=== PATIENT | female | born 1970 | race Caucasian/White ===

== ENCOUNTER 2016-09-07 18:00 | Inpatient (IN) | payer OTHER ==
--- NOTE | ~2016-09-07 | PN ---
Unit #: [id number] #: [id number] Patient: TIFFANIE VALVERDE [id number] [place] [address] [id number] MR#: [id number] NAME: TIFFANIE VALVERDE ROOM: [facility] Age: 46 Sex: F Admission Date: 09/07/2016 : 1970 Attending Physician: Rasta Wills M.D. Admitting Physician: Rasta Wills M.D. Primary Care Physician: Generic Doctor Not In System [facility] PROGRESS NOTES DATE September 09, [address] Rasta Wills at [facility] DISCUSSION This patient was seen and assessed on September 09, 2016. At this time, she reports that she is tired, she states that she only got one hour of sleep last night, and her mood appears labile as evidence by frequent changes from tearfulness back to a flat affect and then tearfulness again. At this time she reports positive visual hallucinations and states that she sees monsters and aliens, and "shit coming to get her." She reports increased thoughts of paranoia stating that she feels like people are out to get her at this time. She still reports positive suicidal ideation with no specific plan. We will continue to monitor her via the continuous video monitoring while she is in her room and every fifteen minute checks for safety. Dictated by... HILDA Bower TD: 09/12/2016 07:47 JOB #: [id number] [facility] NOTES Page 1 of 1 X TYRELL ROACH PROGRESS NOTE
--- NOTE | ~2016-09-07 | HP ---
Unit #: [id number] #: [id number] Patient: TIFFANIE VALVERDE [id number] [place] [address] [id number] MR#: [id number] NAME: TIFFANIE VALVERDE ROOM: P258 Age: 46 Sex: F Admission Date: 09/07/2016 : 1970 Attending Physician: Rasta Wills M.D. Admitting Physician: Rasta Wills M.D. Primary Care Physician: Generic Doctor Not In System HISTORY AND PHYSICAL HISTORY OF PRESENT ILLNESS The patient is a 46-year-old female who states she is here due to suicidal ideation and homicidal ideation and cutting her wrist. PAST MEDICAL HISTORY Significant for hypertension, neuropathy, back pain, chest pain, and degenerative disk disease. PAST SURGICAL HISTORY Significant for back surgery, hysterectomy, gallbladder removal, and tonsillectomy. SOCIAL HISTORY Negative. ALLERGIES The patient states to Cymbalta and Lyrica. FAMILY HISTORY Noncontributory. REVIEW OF SYSTEMS CONSTITUTIONAL: No fever or chills. HEENT: Denies any sore throat, ear pain or runny nose. CARDIOVASCULAR: Denies chest pain, irregular heart rhythm or palpitations. CHEST: Denies shortness of breath or cough. No hemoptysis. GASTROINTESTINAL: Denies nausea, vomiting, diarrhea or chronic constipation. ENDOCRINE: Denies history of increased thirst or urination. No recent significant weight loss or gain. GENITOURINARY: Denies dysuria, frequency, or hematuria. SKIN: Denies any rashes. HEMATOLOGIC: Denies history of increased bleeding or bruising. MUSCULOSKELETAL: Denies any hot, swollen joints. No generalized muscle pain. NEUROLOGIC: Denies problems with vision or speech. No frequent, severe headaches. No numbness, tingling or weakness in any extremities. Denies loss of bladder or bowel control. CURRENT MEDICATIONS 1. Tramadol 50 mg p.o. twice daily p.r.n. 2. Hydroxyzine 50 mg p.o. 3 times daily p.r.n. 3. Remeron 7.5 mg p.o. q.h.s. Unit #: [id number] #: [id number] Patient: TIFFANIE VALVERDE 4. Topiramate 100 mg p.o. twice daily. 5. Omeprazole 20 mg p.o. twice daily. 6. Neurontin 400 mg p.o. 3 times daily. 7. Trifluoperazine 2 mg p.o. twice daily. 8. Clonazepam 0.5 mg p.o. twice daily. 9. Sertraline 150 mg p.o. daily. 10. Keppra 500 mg p.o. twice daily. 11. Inderal 10 mg p.o. twice daily. PHYSICAL EXAMINATION GENERAL: Alert, oriented, no acute distress. VITAL SIGNS: Temperature 98.7, blood pressure 142/93, heart rate 81, respirations 18. HEIGHT: 5 feet 5-1/2 inches. WEIGHT: 284 pounds. SKIN: Warm, dry. No rashes or lesions, track louis, cuts, etc. Tattoo to the right subscapular area of the right breast, bilateral upper chest. Multiple cuts to right and left forearm with incision to the midline abdomen. Cuts to the right lower extremity. Bruise to the right hand. Piercings bilateral ears. HEENT: Normocephalic. TMs not viewed. Oronasal passages clear. Conjunctivae clear. PERRLA. EOM is intact. NECK: No lymphadenopathy or thyromegaly. HEART: Regular rate and rhythm. No murmur, gallop, or rub. LUNGS: Clear to auscultation bilaterally. ABDOMEN: Soft, nontender without palpable masses or hepatosplenomegaly. : Not assessed. EXTREMITIES: No evidence of cyanosis, clubbing, or edema. Moves all extremities independently without obvious deficit. NEUROLOGICAL: Grossly within normal limits. Cranial Nerves: II: Visual wallace are intact. III, IV AND : Extraocular movements are intact. Pupils are equal, round and reactive to light. V: Facial sensation is grossly normal. VII: Facial movements and expression are normal. VIII: Auditory acuity grossly intact. IX, X: Uvula is midline. Phonation is normal. XI: Patient shrugs shoulders and turns head normally. XII: Tongue protrudes in the midline. Sensory and Motor Function: Sensory and motor sensation is grossly normal. Motor: moves all extremities well. Coordination: Gait is normal. Deep Tendon Reflexes: Intact. IMPRESSION Psychiatric admission. RECOMMENDATIONS PSYCHIATRIC: Per psychiatrist. MEDICAL: No contraindication to participating in facility's activities. MEDICAL PROGNOSIS Good. Dictated by... Chi Ricardo.R.N. CGJ/bzg Unit #: [id number] #: [id number] Patient: TIFFANIE VALVERDE TD: 09/08/2016 15:03 JOB #: [id number] HISTORY AND PHYSICAL Page 1 of 1 X Faviola Bruno APR X HISTORY AND PHYSICAL
--- NOTE | ~2016-09-07 | CO ---
Unit #: [id number] #: [id number] Patient: TIFFANIE VALVERDE [id number] [facility] [address] [place] [address] [id number] I MR#: [id number] NAME: TIFFANIE VALVERDE ROOM: [facility] Age: 46 Sex: F Admission Date: 09/07/2016 : 1970 Attending Physician: Rasta Wills M.D. Primary Care Physician: Generic Doctor Not In System Requesting Physician: Rasta Wills M.D. CONSULTATION REPORT REASON FOR CONSULTATION Patient complaint of a bruise to her right fourth metacarpal phalangeal joint. SUBJECTIVE "The day before I came in I hit a shower door. Not hard enough for it to break but I just hit it. I do not think I broke anything but I have a bruise." OBJECTIVE Vital signs within normal limits. Noted dime size bruise to right fourth proximal metacarpal phalangeal joint. No swelling. The patient has good range of motion in all directions. Good movement. Good color circulation pulses. ASSESSMENT Bruise to right fourth metacarpal phalangeal joint. PLAN Observation. Dictated by... Kathy Ricardo/renu TD: 09/10/2016 00:20 JOB #: [id number] CONSULTATION REPORT Page 1 of 1 X Faviola Bruno APR X CONSULTATION REPORT
--- NOTE | ~2016-09-07 | CO ---
Unit #: [id number] #: [id number] Patient: TIFFANIE VALVERDE [id number] [place] [address] [id number] MR#: [id number] NAME: TIFFANIE VALVERDE ROOM: [facility] Age: 46 Sex: F Admission Date: 09/07/2016 : 1970 Attending Physician: Rasta Wills M.D. Primary Care Physician: Generic Doctor Not In System Consultation Date: 09/13/2016 CONSULTATION REPORT SEAN Johns is a 46-year-old originally admitted with depression and verbalizing wanting to hurt herself. She has multiple complaints on a daily basis. At some point, she complained to nursing staff that her legs were weak and painful. She has been noted to ambulate in the hallway and make her way down to her meals without any complaints or evidence of disability. We have been asked to assess and give recommendations. OBJECTIVE GENERAL: Alert, morbidly obese, no apparent distress. VITAL SIGNS: Blood pressure 113/70, heart rate 80, respirations 16, temperature 98.6, weight 284 and height 5 feet 5 inches. EXTREMITIES: No evidence of cyanosis, clubbing, or edema. SKIN: Warm and dry without rash or lesion. She is able to get out of her bed, walked down the nguyen without difficulty. ASSESSMENT The patient complains of weakness and pain in her legs. I would attribute this most likely to her morbid obesity. She seems to have no problem with ambulation however. PLAN She is encouraged to lose weight. She has Tylenol p.r.n. Dictated by... Donavan VargheseAImer-Joshua. for Hernan Maria/ty TD: 09/19/2016 01:20 JOB #: [id number] Unit #: [id number] #: [id number] Patient: TIFFANIE VALVERDE CONSULTATION REPORT Page 1 of 1 X Janki Hwang CONSULTATION REPORT
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
--- NOTE | ~2016-09-07 | DS ---
Unit #: [id number] #: [id number] Patient: TIFFANIE VALVERDE [id number] [facility] [address] [place] [address] [id number] MR#: [id number] NAME: TIFFANIE VALVERDE ROOM: [facility] Age: 46 Sex: F Admission Date: 09/07/2016 : 1970 Discharge Date: 09/15/2016 Attending Physician: Rasta Wills M.D. Primary Care Physician: Generic Doctor Not In System DISCHARGE SUMMARY REASON FOR ADMISSION Ms. Valverde is a 46-year-old woman, who has been suicidal and suffering from hallucinations. She had not slept in several days and had multiple suicide plans. She had recently been released for another facility in [place], [place], where she was there approximately 2 weeks. [facility]. DIAGNOSTIC STUDIES LABORATORY RESULTS: Please see hospital chart. HOSPITAL COURSE The patient was readmitted and placed on suicide precautions. She was also placed on video monitoring due to her record of self-harm. The patient was quite isolated and passive during the hospitalization, complaining greatly of back pain and leg weakness, although there was no clinical evidence of this as she was able to ambulate around the unit quite well and request assistance from the nursing staff. Trilafon was increased to address her complaints of mood lability and psychosis and she was seen by our emergency medical technician with no new recommendations made regarding her medical treatment. She eventually began to feel "better" and participated briefly in psychotherapy groups and activities, although still in a somewhat superficial level. On the date of discharge, she was able to contract for safety and was scheduled to follow up with [facility] in [place], [place]. DISCHARGE DIAGNOSES AXIS I: Bipolar disorder, depressed. AXIS II: Borderline personality traits noted. AXIS III: Obesity, degenerative disk disease, hypertension, neuropathy, back pain. AXIS IV: AXIS V: DISCHARGE INSTRUCTIONS Follow up with [facility] in [place], [place]. DISCHARGE MEDICATIONS Trazodone 100 mg at bedtime for insomnia, Stelazine 5 mg b.i.d. for psychotic features, lithium 300 mg b.i.d. for mood stability. Other medications continued unchanged were clonazepam 0.5 mg b.i.d. for anxiety, Keppra 500 mg b.i.d. for seizures, Inderal 10 mg b.i.d. for hypertension, Unit #: [id number] #: [id number] Patient: TIFFANIE VALVERDE melatonin 5 mg at bedtime as needed for insomnia, Neurontin 400 mg t.i.d. for pain, Protonix 40 mg daily for GERD, Topamax 100 mg b.i.d. for mood stability, Ultram 50 mg b.i.d. for pain. CONDITION AT DISCHARGE Fair. PROGNOSIS Fair. DIET AND ACTIVITY Per primary care doctor. Dictated by... Rasta Wills M.D. Dennise/ty TD: 09/22/2016 03:16 JOB #: [id number] DISCHARGE SUMMARY Page 1 of 1 X Rasta Wills MD X DISCHARGE SUMMARY
[2016-09-08 11:14] LABS: URINE APPEARANCE CLEAR; URINE BILIRUBIN NEG (NEG); URINE BLOOD TRACE (NEG); URINE COLOR YELLOW; URINE GLUCOSE NEG (NEG); URINE KETONE NEG (NEG); URINE LEUKOCYTE ESTERASE 1+ (NEG); URINE NITRATE NEG (NEG); URINE PROTEIN NEG (NEG); URINE UROBILINOGEN 0.2 MG/DL (NEG)
[2016-09-08 11:17] LABS: URBCS1 AUWI 0-2 /[HPF] (0-2); URINE BACTERIA AUWI 2+ (NEGATIVE); URINE SQUAMOUS EPITHELIAL CELL MOD /[HPF]
[2016-09-08 11:39] LABS: AMPHETAMINE NEG (NEG); BARBITURATES NEG (NEG); BENZODIAZEPINES NEG (NEG); COCAINE NEG (NEG); MARIJUANA NEG (NEG); OPIATES NEG (NEG); TRICYCLIC ANTIDEPRESSANTS NEG (NEG); U METHADONE NEG (NEG)
[2016-09-08 12:15] LABS: BASOPHIL# 0.1 X10e3 (0-0.3); EOSINOPHIL# 0.3 X10e3 (0-0.7); EOSINOPHIL% 4.3 % (0.0-7.0); HEMATOCRIT 41.1 % (35.0-45.0); HEMOGLOBIN 13.5 gm/dL (12.0-16.0); LYMPHOCYTE# 2.3 X10e3 (1.0-3.5); LYMPHOCYTE% 37.8 % (17.0-45.0); MEAN CELL VOLUME 82.2 FL (83-96); MEAN CORPUSCULAR HGB CONC 32.8 g/dL (30-36); MEAN PLATELET VOLUME 6.9 FL (6.5-11.5); MONOCYTE# 0.3 X10e3 (0-1.0); MONOCYTE% 5.1 % (3.0-12.0); NEUTROPHIL# 3.1 X10e3 (1.5-7.1); NEUTROPHIL% 51.8 % (40-75); PLATELET COUNT 304 X10e3 (140-420); RED CELL DISTRIBUTION WIDTH 14.5 % (11.0-15.5)
[2016-09-08 12:18] LABS: DIFF IND NO
[2016-09-08 13:30] LABS: ALBUMIN SERUM 4.1 g/dL (3.5-5.0); BILIRUBIN,TOTAL 0.9 mg/dL (0.2-2.0); BUN/CREATININE RATIO 12.22; CALCIUM SERUM 9.5 mg/dL (8.4-10.2); CREATININE SERUM 0.9 mg/dL (0.6-1.4); GLOM FILT RATE Estimated 75.7 mL/min (>60); POTASSIUM 3.7 mmol/L (3.5-5.1); PROTEIN TOTAL SERUM 6.7 g/dL (6.0-8.3)
[2016-09-14 09:51] LABS: ALBUMIN SERUM 4.2 g/dL (3.5-5.0); BILIRUBIN,TOTAL 0.7 mg/dL (0.2-2.0); BUN/CREATININE RATIO 15.55; CALCIUM SERUM 9.4 mg/dL (8.4-10.2); CREATININE SERUM 0.9 mg/dL (0.6-1.4); GLOM FILT RATE Estimated 75.7 mL/min (>60); POTASSIUM 3.9 mmol/L (3.5-5.1); PROTEIN TOTAL SERUM 6.8 g/dL (6.0-8.3)
== END 2016-09-15 14:25 | disposition home or self-care (01) | DRG 885 ==
LOC: P2L 19:54
PROVIDERS: Psychiatry & Neurology Psychiatry
DX: F33.3 Major depressive disorder, recurrent, severe with psychotic symptoms (principal); R45.851 Suicidal ideations; R45.850 Homicidal ideations; I10 Essential (primary) hypertension; E03.9 Hypothyroidism, unspecified; M79.7 Fibromyalgia; E66.9 Obesity, unspecified; R51 Headache; G89.29 Other chronic pain; M54.9 Dorsalgia, unspecified; Z91.5 Personal history of self-harm; Z88.8 Allergy status to other drugs, medicaments and biological substances; S60.221A Contusion of right hand, initial encounter; X58.XXXA Exposure to other specified factors, initial encounter
CPT/HCPCS: 80053; 80178; 80307; 81003; 84703; 85025